=== PATIENT | male | born 1990 | race Caucasian/White ===

== ENCOUNTER 2019-06-23 17:46 | Emergency (ER) | payer OTHER, SELFPAY ==
[2019-06-23 17:49] VITALS: BP 126/70; PULSE 102; RESP 18; TEMP 36.2; O2SAT 100
--- NOTE | 2019-06-23 21:01 | ED.SKABFB ---
HPI - Skin/Abscess/Foreign Bdy General Chief complaint: Skin/Abscess/Foreign Body <FLO Fried Last Filed: 06/23/19 21:07> Stated complaint: skin issue <FLO Fried Last Filed: 06/23/19 21:07> Time Seen by Provider: 06/23/19 19:19 <FLO Fried Last Filed: 06/23/19 21:07> Source: patient <FLO Fried Last Filed: 06/23/19 21:07> Mode of arrival: ambulatory <FLO Fried Last Filed: 06/23/19 21:07> Limitations: no limitations <FLO Fried Last Filed: 06/23/19 21:07> History of Present Illness HPI narrative: This is a 28 year old male that presents to the ER for abscess to the right thigh x 2 weeks. Reports increasing pain and swelling to the area. He has tried OTC medications without relief. Denies fever or drainage <Corine Mayorga PA-C - Last Filed: 06/23/19 21:07> Related Data Home medications: Home Medications Medication Instructions Recorded Confirmed meloxicam 15 mg DAILY 06/23/19 <FLO Fried Last Filed: 06/23/19 21:07> Allergies/Adverse reactions: Allergies Allergy/AdvReac Type Severity Reaction Status Date / Time cephalexin Allergy Mild Hives Verified 06/23/19 17:53 Penicillins AdvReac Hives Verified 06/23/19 17:53 <FLO Fried Last Filed: 06/23/19 21:07> Review of Systems Review of Systems: Narrative: CONSTITUTIONAL: Denies fever SKIN: Reports abscess <FLO Fried Last Filed: 06/23/19 21:07> All systems reviewed & are unremarkable except as noted in HPI and below <FLO Fried Last Filed: 06/23/19 21:07> [facility] Past Medical History Medical History: Medical History (Updated 06/24/19 @ 00:00 by Background Daemon) No active medical problems <Corine Mayorga PA-C - Last Filed: 06/23/19 21:07> Social History Social History: Social History (Updated 06/23/19 @ 21:02 by Corine Mayorga PA-C) Substance use: never <Corine Mayorga PA-C - Last Filed: 06/23/19 21:07> Exam Narrative: Exam Narrative: GENERAL: Well-appearing, well-nourished, and in no acute distress. HEAD: Normocephalic, atraumatic. EYES: EOMI. EXTREMITIES: Normal range of motion. 2cm abscess to the right inner thigh with mild surrounding cellulitis SKIN: Warm, dry, no rash. NEURO: No focal deficits. Alert and oriented x3. PSYCH: Normal mood and affect <Corine Mayorga PA-C - Last Filed: 06/23/19 21:07> Course Vital Signs Vital signs: Vital Signs Temperature 97.2 F L 06/23/19 17:49 Pulse Rate 102 H 06/23/19 17:49 Respiratory Rate 18 06/23/19 17:49 Blood Pressure 126/70 06/23/19 17:49 Pulse Oximetry 100 06/23/19 17:49 Temperature 98.7 F 06/23/19 21:24 Pulse Rate 99 06/23/19 21:24 Respiratory Rate 16 06/23/19 21:24 Blood Pressure 125/81 06/23/19 21:24 Pulse Oximetry 98 06/23/19 21:24 <Corine Mayorga PA-C - Last Filed: 06/23/19 21:07> Vital Signs Temperature 97.2 F L 06/23/19 17:49 Pulse Rate 102 H 06/23/19 17:49 Respiratory Rate 18 06/23/19 17:49 Blood Pressure 126/70 06/23/19 17:49 Pulse Oximetry 100 06/23/19 17:49 Temperature 98.7 F 06/23/19 21:24 Pulse Rate 99 06/23/19 21:24 Respiratory Rate 16 06/23/19 21:24 Blood Pressure 125/81 06/23/19 21:24 Pulse Oximetry 98 06/23/19 21:24 <Natasha Ahuja MD - Last Filed: 06/24/19 07:11> Procedures Abscess I/D lower extremity: Date of Incision: 06/23/19 <FLO Fried Last Filed: 06/23/19 21:07> Time of Incision: 21:05 <FLO Fried Last Filed: 06/23/19 21:07> Side (if applicable): right <Corine Mayorga PA-C - Last Filed: 06/23/19 21:07> Local Anesthetic: lidocaine 1% and with epi <FLO Fried Last Filed: 06/23/19 21:07> Amount of anesthesia used (mL): 2 <FLO Fried Last Filed: 06/12
[2019-06-23 21:24] VITALS: BP 125/81; PULSE 99; RESP 16; TEMP 37.1; O2SAT 98
== END 2019-06-23 21:25 | disposition home or self-care (01) ==
PROVIDERS: Emergency Provider General Practice
DX: L02.415 Cutaneous abscess of right lower limb (principal)
CPT/HCPCS: 10060; 99283

== ENCOUNTER 2020-09-16 20:14 | Emergency (ER) | payer OTHER, SELFPAY ==
--- NOTE | ~2020-09-16 | CT_ITS ---
EXAMINATION: CT abdomen pelvis wo con DATE: 09/16/2020 23:02 INDICATION: Left flank pain. TECHNIQUE: Computed tomography (CT) of the abdomen and pelvis was performed without intravenous contr ast. Automated exposure control and iterative reconstruction technique were employed. The dose-length product was 1450.42 mGy-cm. COMPARISON: CT abdomen and pelvis 07/29/2009 FINDINGS: The visualized portions of the lung bases demonstrate mild atelectasis. No pleural effusion . The heart size is normal. No pericardial effusion. There is right-sided gynecomastia. The liver, ga llbladder, spleen, pancreas, adrenal glands, and right kidney are normal. There is mild left hydronep hrosis and hydroureter. There is a 3 mm stone in distal left ureter. There are no dilated loops of annia wel. The appendix is normal. There is mild thoracolumbar spondylosis. There are chronic bilateral L5 pars defects. There is 4 mm anterolisthesis of L5 on S1. IMPRESSION: 1. 3 mm stone in distal left ureter with mild left hydronephrosis and hydroureter. Reviewed, dictated and finalized at location A. IMPRESSION: 1. 3 mm stone in distal left ureter with mild left hydronephrosis and hydroure ter.
[2020-09-16 20:34] VITALS: BP 127/84; PULSE 67; RESP 20; TEMP 36.4; O2SAT 100
--- NOTE | 2020-09-16 21:16 | ED.BACK ---
HPI - Back Pain/Injury General Chief Complaint: Back Pain/Injury Stated Complaint: Back pain Time Seen by Provider: 09/16/20 21:03 History of Present Illness HPI Narrative: Left mid back pain since this afternoon. Severe. Radiates straight through him. Associated with nausea. He has chronic back pain, but states that he has never had anything like this before. No weakness, numbness, urinary symptoms. He took meloxicam and Robaxin without improvement. Related Data Home Medications Medication Instructions Recorded Confirmed meloxicam 15 mg DAILY 06/23/19 Allergies Allergy/AdvReac Type Severity Reaction Status Date / Time cephalexin Allergy Mild Hives Verified 09/16/20 21:10 Penicillins AdvReac Hives Verified 09/16/20 21:10 Review of Systems Review of Systems: All systems reviewed & are unremarkable except as noted in HPI and below Constitutional: Constitutional: Denies chills, Denies fever(s) and Denies weakness Cardiovascular: Cardiovascular: Denies chest pain Respiratory: Respiratory: Denies dyspnea Gastrointestinal: Gastrointestinal: Reports nausea Genitourinary: Genitourinary: Denies hematuria and Denies dysuria Musculoskeletal: Musculoskeletal: Reports as per HPI Neurologic: Denies numbness and Denies weakness [facility] Past Medical History Medical History No active medical problems Social History Social History Substance use: never Gender identity (if verbalized by the patient): Male Exam Const: General: healthy appearing, no acute distress and alert Orientation/consciousness: patient oriented x3 HENMT: Head: normal to inspection Neck: Neck: normal visual inspection Resp: Effort & Inspection: normal respiratory effort Auscultation: clear to auscultation bilaterally, no rales, no rhonchi and no wheezes Cardio: Jugular venous distension: no JVD Rate: regular rate Rhythm: regular rhythm Heart sounds: no murmurs GI: Inspection: non-distended GI Palp: Yes Soft to palpation and No Tenderness to palpation present (GI) : General: Yes CVA tenderness on the left Skin: General skin exam: normal color Neuro: General: patient oriented x3 and moves all extremities Speech: normal speech Extrem: General: normal to inspection and no edema Psych: Appearance: well kempt Affect: normal affect Course Vital Signs Vital signs: Vital Signs Temperature 36.4 C L 09/16/20 20:34 Pulse Rate 67 09/16/20 20:34 Respiratory Rate 20 09/16/20 20:34 Blood Pressure 127/84 09/16/20 20:34 Pulse Oximetry 100 09/16/20 20:34 Temperature 36.4 C L 09/16/20 20:34 Pulse Rate 72 09/17/20 01:40 Respiratory Rate 20 09/16/20 20:34 Blood Pressure 132/76 09/17/20 01:40 Pulse Oximetry 96 09/17/20 01:40 MDM - Back Pain/Injury Differential Diagnosis Differential diagnosis: Likely strain of lumbar region, renal colic and thoracic back pain Medical Records Attestation: I reviewed the patient's medical records. Lab Data Attestation: I reviewed the patient's lab results. Result diagrams: 09/16/20 21:42 09/16/20 21:42 Labs: Lab Results 09/16/20 09/16/20 09/17/20 Range/Units 21:42 21:42 01:33 WBC 13.7 H (4.5-10.0) K/mm3 RBC 4.50 L (4.6-6.20) M/mm3 Hgb 14.2 (14.0-18.0) g/dL Hct 42.8 (42.0-52.0) % MCV 95.1 (80-100) fl MCH 31.6 (26-34) pg MCHC 33.2 (32-36) g/dl RDW 11.6 (11.5-14.5) % Plt Count 208 (150-375) k/mm3 MPV 9.1 (7.4-10.4) fl Immature Gran % (Auto) 0.4 (0-0.5) % Neut % (Auto) 74.5 H (45.5-73.1) % Lymph % (Auto) 15.6 L (18.3-44.2) % [place] % (Auto) 7.1 (2.6-8.5) % Eos % (Auto) 2.0 (0-4.4) % Baso % (Auto) 0.4 (0.2-1.2) % Lymph # (Auto) 2.14 (0.9-3.2) K/mm3 [place] # (Auto) 1.0 H (0.1-0.6) K/mm3 Eos # (Auto) 0.3 (0-0.3) K/mm3 Baso # (A
[2020-09-16] MEDS: fentaNYL CITRATE INJ (*CRX) 100 MCG/2 ML VIAL 50 MCG IV PUSH (21:46)
[2020-09-16 21:48] LABS: Basophils Absolute Auto 0.1 K/mm3 (0.0-0.1); Basophils Percent Auto 0.4 % (0.2-1.2); Eosinophils Absolute Auto 0.3 K/mm3 (0-0.3); Hematocrit 42.8 % (42.0-52.0); Hemoglobin 14.2 g/dL (14.0-18.0); Immature Granulocyte Absolute 0.05 K/mm3 (0.00-0.031); Immature Granulocyte Percent A 0.4 % (0-0.5); Lymphocytes Absolute Auto 2.14 K/mm3 (0.9-3.2); Lymphocytes Percent Auto 15.6 % (18.3-44.2); Mean Corpuscular HGB Conc 33.2 g/dl (32-36); Mean Corpuscular Hemoglobin 31.6 pg (26-34); Mean Corpuscular Volume 95.1 fl (80-100); Mean Platelet Volume 9.1 fl (7.4-10.4); Monocytes Percent Auto 7.1 % (2.6-8.5); Neutrophils Absolute Auto 10.2 K/mm3 (1.3-6.7); Neutrophils Percent Auto 74.5 % (45.5-73.1); Platelet Count Result 208 k/mm3 (150-375); Red Cell Distribution Width 11.6 % (11.5-14.5); White Blood Count 13.7 K/mm3 (4.5-10.0)
[2020-09-16 21:58] LABS: Anion Gap 6 mmol/L (8-16); Blood Urea Nitrogen 13 mg/dL (9-20); Carbon Dioxide 27 mmol/L (22-30); Chloride 106 mmol/L (98-107); Estimated CRCL calculation 126 ml/min; Estimated Glomerular Filt Rate > 60; Glucose 101 mg/dL (65-110); Potassium 4.2 mmol/L (3.4-5.0); Sodium 139 mmol/L (137-145)
--- NOTE | 2020-09-16 22:21 | PC.NURSE ---
Dr. Estrella informed pain continues to be 11/21.
--- NOTE | 2020-09-16 23:15 | PC.NURSE ---
Report received from MARY Moreno. Assumed care of patient at this time.
[2020-09-16] MEDS: TAMSULOSIN HCL 0.4 MG CAPSULE PO (23:19)
[2020-09-16] MEDS: MORPHINE SULFATE (*CRX) 4 MG/ML INJ IV PUSH (23:19)
[2020-09-16 23:24] VITALS: PULSE 67; O2SAT 95
[2020-09-16] MEDS: SODIUM CHLORIDE 0.9% IV 1,000 ML 999 ML IV CONT (23:24)
[2020-09-16 23:29] VITALS: BP 139/87; PULSE 76; O2SAT 93
[2020-09-16 23:46] VITALS: BP 142/85; O2SAT 98
[2020-09-17] MEDS: SODIUM CHLORIDE 0.9% IV 1,000 ML 999 ML IV CONT (00:42)
[2020-09-17] MEDS: KETOROLAC 30 MG/ML VIAL (*BKC) IV PUSH (00:42)
[2020-09-17] MEDS: HYDROcodone/acetaminophen (*CRX) 5-325 MG TABLET 1 TAB PO (01:31)
[2020-09-17 01:40] VITALS: BP 132/76; PULSE 72; O2SAT 96
[2020-09-17 01:55] LABS: Add Urine Microscopic? YES; Appearance Urine Clear (Clear); Bacteria Urine Trace /hpf; Bilirubin Urine 1+ (Negative); Blood Urine 2+ (Negative); Color Urine Yellow (Yellow); Glucose Urine UA Negative (Negative); Ketones Urine Negative (Negative); Leukocyte Esterase Ur Negative LEU/UL (Negative); Mucus Urine Heavy /lpf; Nitrate Urine Negative (Negative); Protein Urine 2+ mg/dL (Negative); RBC Urine >75 /hpf (0-2); Squamous Epithelial Cell Urine Rare /hpf (Few); Urobilinogen Urine Negative mg/dL (<2.0); WBC Urine 0-3 /hpf
== END 2020-09-17 02:20 | disposition home or self-care (01) ==
PROVIDERS: Emergency Provider Emergency Medicine
DX: N13.2 Hydronephrosis with renal and ureteral calculous obstruction (principal)
CPT/HCPCS: 36415; 74176; 80048; 81001; 85025; 96361; 96374; 96375; 99284; A9270; J1885; J2270; J3010; J7030

== ENCOUNTER 2020-09-25 04:23 | Emergency (ER) | payer OTHER, SELFPAY ==
--- NOTE | ~2020-09-25 | CT_ITS ---
EXAMINATION: CT abdomen pelvis wo con DATE: 09/25/2020 05:35 INDICATION: Left flank pain TECHNIQUE: Computed tomography (CT) of the abdomen and pelvis was performed without intravenous contr ast. The dose-length product (DLP) was 798.20 mGy-cm. Automated exposure control and iterative recons truction technique were employed. COMPARISON: 09/16/2020 FINDINGS: Minimal dependent atelectasis is present in the lung bases. The heart size is normal. There is right-sided gynecomastia. The liver, spleen, pancreas, gallbladder, and adrenal glands are normal . The right kidney is unremarkable. There is a 4 mm stone at the left ureterovesicular junction which has migrated from the distal left ureter. There is mild left hydroureteronephrosis. No pathologicall y enlarged abdominal or pelvic lymph nodes are identified. There is no free intraperitoneal gas or ev idence of bowel obstruction. There are bilateral L5 pars defects with stable grade 1 anterolisthesis of L5 on S1. IMPRESSION: 1. 4 mm stone at the left ureterovesicular junction causing mild left hydroureteronephrosis. Reviewed, dictated and finalized at location A. IMPRESSION: 1. 4 mm stone at the left ureterovesicular junction causing mild left hydrouret eronephrosis.
[2020-09-25 04:25] VITALS: BP 137/85; PULSE 62; RESP 17; TEMP 36.2; O2SAT 99
--- NOTE | 2020-09-25 05:06 | PC.NURSE ---
Pt states he was seen last week for same pain and was told he had a left sided kidney stone. Reports being told he would pass the stone at home and sent home with a strainer. Pt states he has been straining his urine and he has not passed the stone to his knowledge. Per family at bedside, pt took 2mg Zofran and hydrocodone at 0330.
[2020-09-25 05:10] LABS: Add Urine Microscopic? YES; Appearance Urine Clear (Clear); Bilirubin Urine Negative (Negative); Blood Urine Negative (Negative); Color Urine Yellow (Yellow); Glucose Urine UA Negative (Negative); Ketones Urine Negative (Negative); Leukocyte Esterase Ur Negative LEU/UL (Negative); Nitrate Urine Negative (Negative); Protein Urine Negative (Negative); RBC Urine 0-2 /hpf (0-2); Specific Grav Ur 1.024 (1.001-1.035); Urobilinogen Urine Negative mg/dL (<2.0); WBC Urine 0-3 /hpf
[2020-09-25 05:44] LABS: Basophils Percent Auto 0.2 % (0.2-1.2); Eosinophils Percent Auto 0.2 % (0-4.4); Hematocrit 42.3 % (42.0-52.0); Hemoglobin 14.5 g/dL (14.0-18.0); Immature Granulocyte Absolute 0.07 K/mm3 (0.00-0.031); Immature Granulocyte Percent A 0.5 % (0-0.5); Lymphocytes Absolute Auto 0.61 K/mm3 (0.9-3.2); Lymphocytes Percent Auto 4.2 % (18.3-44.2); Mean Corpuscular HGB Conc 34.3 g/dl (32-36); Mean Corpuscular Hemoglobin 31.7 pg (26-34); Mean Corpuscular Volume 92.6 fl (80-100); Mean Platelet Volume 9.3 fl (7.4-10.4); Monocytes Absolute Auto 0.6 K/mm3 (0.1-0.6); Monocytes Percent Auto 3.9 % (2.6-8.5); Neutrophils Absolute Auto 13.2 K/mm3 (1.3-6.7); Platelet Count Result 228 k/mm3 (150-375); Red Blood Count 4.57 M/mm3 (4.6-6.20); Red Cell Distribution Width 11.1 % (11.5-14.5); White Blood Count 14.5 K/mm3 (4.5-10.0)
[2020-09-25 05:56] LABS: Anion Gap 8 mmol/L (8-16); Blood Urea Nitrogen 16 mg/dL (9-20); Carbon Dioxide 29 mmol/L (22-30); Chloride 95 mmol/L (98-107); Estimated CRCL calculation 93 ml/min; Estimated Glomerular Filt Rate 56; Glucose 114 mg/dL (65-110); Potassium 4.3 mmol/L (3.4-5.0); Sodium 132 mmol/L (137-145)
--- NOTE | 2020-09-25 06:09 | ED.GENADULT ---
HPI - General Adult General Chief complaint: Abdominal Pain Stated complaint: kidney stones Time Seen by Provider: 09/25/20 05:32 History of Present Illness HPI narrative: Patient is a 30-year-old gentleman who presents the emergency department with chief complaint of abdominal pain. The patient reports that he was seen in the emergency department several days ago and diagnosed with a kidney stone. Patient reports that he is continue to have discomfort but tonight the pain returned and has not been improving. The patient reports a little bit of nausea with this denies vomiting or diarrhea. The patient denies fever reports that he had followed up with his primary care physician and they were following things to make sure that he passed the stone. Patient reports he has been straining his urine patient denies fevers denies dysuria. The patient reports symptoms or not improved by anything nor they worsened by. Related Data Home Medications Medication Instructions Recorded Confirmed meloxicam 15 mg DAILY 06/23/19 Allergies Allergy/AdvReac Type Severity Reaction Status Date / Time cephalexin Allergy Mild Hives Verified 09/25/20 05:15 Penicillins AdvReac Hives Verified 09/25/20 05:15 Review of Systems Review of Systems: A 10 system review of systems was completed on the patient and is negative except for what is stated in the HPI. Nursing and ancillary documentation was reviewed. [facility] Past Medical History Medical History No active medical problems Social History Social History Substance use: never Gender identity (if verbalized by the patient): Male Exam Narrative: GENERAL: Well-appearing, well-nourished, and in no acute distress. HEAD: Normocephalic, atraumatic. EYES: PERRLA and EOMI. ENT: Nares clear, no rhinorrhea or epistaxis. Mucous membranes moist. NECK: Supple. CHEST: Clear to auscultation. No respiratory distress. HEART: Regular rate and rhythm. No murmur heard. Normal peripheral pulses. ABDOMEN: Soft, nontender, nondistended, normal active bowel sounds. EXTREMITIES: Normal range of motion. No edema. SKIN: Warm, dry, no rash. NEURO: No focal deficits. Alert and oriented x3. PSYCH: Normal mood and affect. Course Vital Signs Vital signs: Vital Signs Temperature 36.2 C L 09/25/20 04:25 Pulse Rate 62 09/25/20 04:25 Respiratory Rate 17 09/25/20 04:25 Blood Pressure 137/85 09/25/20 04:25 Pulse Oximetry 99 09/25/20 04:25 Temperature 36.2 C L 09/25/20 04:25 Pulse Rate 56 L 09/25/20 06:13 Respiratory Rate 16 09/25/20 06:13 Blood Pressure 127/85 09/25/20 06:13 Pulse Oximetry 98 09/25/20 06:13 Medical Decision Making Vital Signs Vital Signs: Vital Signs Temperature 36.2 C L 09/25/20 04:25 Pulse Rate 62 09/25/20 04:25 Respiratory Rate 17 09/25/20 04:25 Blood Pressure 137/85 09/25/20 04:25 Pulse Oximetry 99 09/25/20 04:25 Temperature 36.2 C L 09/25/20 04:25 Pulse Rate 56 L 09/25/20 06:13 Respiratory Rate 16 09/25/20 06:13 Blood Pressure 127/85 09/25/20 06:13 Pulse Oximetry 98 09/25/20 06:13 Lab Data Result diagrams: 09/25/20 04:33 09/25/20 04:33 Labs: Lab Results 09/25/20 09/25/20 09/25/20 Range/Units 04:33 04:33 04:53 WBC 14.5 H (4.5-10.0) K/mm3 RBC 4.57 L (4.6-6.20) M/mm3 Hgb 14.5 (14.0-18.0) g/dL Hct 42.3 (42.0-52.0) % MCV 92.6 (80-100) fl MCH 31.7 (26-34) pg MCHC 34.3 (32-36) g/dl RDW 11.1 L (11.5-14.5) % Plt Count 228 (150-375) k/mm3 MPV 9.3 (7.4-10.4) fl Immature Gran % (Auto) 0.5 (0-0.5) % Neut % (Auto) 91.0 H (45.5-73.1) % Lymph % (Auto) 4.2 L (18.3-44.2) % [place] % (Auto) 3.9 (2.6-8.5) % Eos % (Auto) 0.2 (0-4.4) % Baso % (Auto) 0.2 (0.2-1.2) % Lymph # (Auto) 0.61 L
[2020-09-25 06:13] VITALS: BP 127/85; PULSE 56; RESP 16; O2SAT 98
[2020-09-25] MEDS: SODIUM CHLORIDE 0.9% IV 1,000 ML 999 ML IV CONT (06:14)
[2020-09-25] MEDS: MORPHINE SULFATE (*CRX) 4 MG/ML INJ IV PUSH (06:14)
[2020-09-25] MEDS: ONDANSETRON INJ 4 MG/2 ML VIAL IV PUSH (06:15)
== END 2020-09-25 07:18 | disposition home or self-care (01) ==
PROVIDERS: Emergency Provider Emergency Medicine
DX: N13.2 Hydronephrosis with renal and ureteral calculous obstruction (principal)
CPT/HCPCS: 36415; 74176; 80048; 81001; 85025; 96361; 96374; 96375; 99284; J2270; J2405; J7030

== ENCOUNTER 2020-09-30 15:31 | Outpatient (CLI) | payer OTHER, SELFPAY ==
--- NOTE | ~2020-09-30 | XR_ITS ---
XR abdomen/kub 1V DATE: 09/30/2020 15:55 INDICATION: Left ureteral stone on previous CT examination TECHNIQUE: AP projection, 2 views COMPARISON: 09/25/[address] abdomen pelvis FINDINGS: The distal left ureteral calculus present on 09/25/2020 CT abdomen pelvis examination is not radiographically evident and likely has passed. There is a small left calcified pelvic phleboliths, also evident on the 09/25/2020 CT pelvis images. No other urinary tract calculus is evident on 09/25/2020 CT examination. There is a prominent amount of fecal material in the colon and rectum but no bowel obstruction is det ected. The psoas shadows are intact. No visceromegaly. Included skeletal structures are unremarkable. IMPRESSION: Probable interval resolution of distal left ureteral calculus since 09/25/2020 Reviewed, dictated and finalized at [facility]. Reviewed, dictated and finalized at location A.
== END 2020-09-30 15:32 | disposition home or self-care (01) ==
LOC: ANHIMG 15:34
PROVIDERS: Visit Provider Urology
DX: N20.1 Calculus of ureter (principal)
CPT/HCPCS: 74018

== ENCOUNTER → 2020-10-04 09:00 | Outpatient (CLI) | payer OTHER, SELFPAY ==
[2020-10-05 01:23] LABS: SARS-CoV-2 RNA PCR Negative
== END ==
PROVIDERS: Visit Provider Urology
DX: Z01.812 Encounter for preprocedural laboratory examination (principal); Z20.822 Contact with and (suspected) exposure to COVID-19
CPT/HCPCS: C9803; U0003; U0005

== ENCOUNTER 2020-10-05 02:17 | Day surgery (SDC) | payer OTHER, SELFPAY ==
[2020-10-04 10:24] VITALS: BMI 35.6
--- NOTE | 2020-10-04 13:45 | WPDANESEPPF ---
Anes - Initial Pre Proc Eval Procedure: Operation Date: 10/05/20 14:30 Proposed Procedures p Cystoscopy, Left Ureteroscopy, Left Stone Extraction, Left Possible Retrograde Pyelogram, Possible Left Stent Placement - Williams Ovalles MD s Possible Holmium Laser Procedure - Williams Ovalles MD Date/Time: 10/04/20 13:45 Surgeon: Williams Ovalles MD Pre Op Diagnosis: Left Ureteral Stone Patient Data Age: 30 Gender: M Height: 1.85 m Weight: 122.5 kg Allergies Allergy/AdvReac Type Severity Reaction Status Date / Time cephalexin Allergy Mild Hives Verified 10/04/20 10:10 Penicillins AdvReac Unknown MOM TOLD Verified 10/05/20 11:22 HIM ALLERGIC TO IT A CHILD Home Medications Medication Instructions Recorded Confirmed Type meloxicam 15 mg PO DAILY 06/23/19 10/05/20 History hydrocodone-acetaminophen 1 tablet PO Q6H PRN #10 tablet 09/16/20 10/05/20 Rx tamsulosin [Flomax] 0.4 mg PO DAILY #5 cap 09/16/20 10/05/20 Rx ondansetron 4 mg PO Q8H PRN #15 tablet 09/25/20 10/05/20 Rx Patient hx anesthesia problems: none Family hx anesthesia problems: none PMFSH Past Medical History Medical History (Updated 10/04/20 @ 13:46 by Joaquin Alonso MD) No active medical problems Obesity ALFONZO (obstructive sleep apnea) SVT (supraventricular tachycardia) Surgical History Surgical History (Updated 10/04/20 @ 13:46 by Joaquin Alonso MD) S/P ablation of atrial fibrillation Social History Social History Smoking packs per day: 1 Smoking cigarettes per day: 20.0 Years smoked: 10 Smoking pack-years: 10.00 Smoking status: Former smoker Tobacco type: cigarettes Smoking end date: 06/12/20 Substance use: current Substance use type: marijuana Last use: EVERY NIGHT TO HELP SLEEP Living arrangements: other Gender identity (if verbalized by the patient): Male Spiritual care concerns: No Anes - Eval Final PreProcedure Day of Procedure 10/04/20 13:45 Patient weight: obese Heart: regular rate and rhythm Lungs: clear to auscultation and normal air movement Airway: Mallampati scale class II Neurological: alert and oriented Last oral intake: >/= 8 hours ASA classification: III Emergent: no Anesthetic plan: proceed Anesthesia type and monitoring: general LMA Informed Consent: The patient's anesthetic plan and its attendant risks and benefits were discussed with the patient/family/POA. Questions were solicited and answers provided to the satisfaction of the patient/family/POA.
--- NOTE | ~2020-10-05 | XR_ITS ---
XR retrograde pyelo w/stent LT DATE: 10/05/2020 16:17 INDICATION: Left internal urinary stent placement TECHNIQUE: 21.3 seconds fluoroscopy time 319.86 radcm2 COMPARISON: None FINDINGS: Images reveal placement of a left internal urinary stent, proximal pigtail overlying the le ft renal pelvis, distal pigtail overlying the left lateral aspect of the urinary bladder. IMPRESSION: Left internal urinary stent placement Reviewed, dictated and finalized at [facility]. Reviewed, dictated and finalized at location A.
--- NOTE | 2020-10-05 07:54 | ECG_ITS ---
Measurements Intervals [place] Rate: 67 P: 43 AR: 186 QRS: 11 QRSD: 95 T: 19 QT: 393 QTc: 417 Interpretive Statements SINUS RHYTHM WITH SINUS ARRHYTHMIA ST ELEVATION IN DIFFUSE LEADS, PROBABLY EARLY REPOLARIZATION MINIMAL Q WAVES- HIGH LATERAL LEADS ABNORMAL ECG Electronically Signed On 10-05-2020 12:11:35 CDT by Manuel Hassan D.O.
[2020-10-05 11:30] VITALS: BP 109/67; PULSE 59; RESP 20; TEMP 36.4; O2SAT 98
[2020-10-05] MEDS: LACTATED RINGERS 1,000 ML 30 ML IV CONT (11:50)
--- NOTE | 2020-10-05 12:24 | SUR.PREOP ---
1215-PT AWARE SURGEON DELAYS SELF ADDITIONAL 1 HOUR. PT STATES HE WILL NOTIFY GIRLFRIEND WITH TIME DELAY.
--- NOTE | 2020-10-05 14:26 | WPDHPUPDATE1 ---
History and Physical Update Update Date/Time: 10/05/20 14:26 History and Physical has been reviewed, including an updated exam of the patient. There are NO changes in the patient's condition. Risks, benefits, and alternatives have been discussed and questions answered. Patient agrees to proceed with procedure. Proceed with cystoscopy, left retrograde pyelogram, left ureteroscopy with stone extraction, possible holmium laser, stent placement
[2020-10-05] MEDS: levoFLOXacin 500 MG/D5W 100 ML 500 MG/100 ML BAG 100 MG IVPB (15:40)
[2020-10-05] MEDS: LIDOCAINE HCL 2% GEL UROJET 10 ML PKG MUCOUS MEM (15:51)
--- NOTE | 2020-10-05 16:03 | W.PM.PROC2 ---
Procedure Note - Detailed Date of Procedure 10/05/20 Pre-op Diagnosis Left Ureteral Stone Post-op Diagnosis same Procedure Performed Cystoscopy, left retrograde pyelogram, left ureteroscopy with stone extraction, left stent placement Surgeon Williams Ovalles MD Anesthesia general Description of Procedure Patient is taken the operative suite and correctly identified. Once anesthesia was obtained was placed in dorsal lithotomy position and prepped and draped usual sterile fashion. Nineteen Mongolian scope was inserted the bladder there is no tumors. Left ureteral orifice was cannulated with a guidewire. We dilated with an 810/dilator. Rigid ureteral scope was inserted the stone was a able to be grasped with an escape basket and removed in its entirety. Pyelogram was then performed to confirm placement the stent. 4.8 Mongolian contour stent was then placed with the proximal end coiled in the renal pelvis and the distal in the bladder. Bladder was drained. 2% viscous lidocaine was inserted urethra patient is taken recovery stable condition. He will follow up in a week for stent removal. Drains Yes Packing No Pathology yes Complications No immediate complications Condition stable Disposition PACU
[2020-10-05 16:08] VITALS: BP 110/68; PULSE 60; RESP 15; TEMP 36.1; O2SAT 98
[2020-10-05 16:20] VITALS: BP 121/69; PULSE 64; RESP 20; O2SAT 98
[2020-10-05 16:30] VITALS: BP 111/74; PULSE 73; RESP 20; O2SAT 95
[2020-10-05 16:37] VITALS: BP 120/82; PULSE 55; RESP 16
[2020-10-05 17:05] VITALS: BP 98/62; PULSE 65; RESP 16
== END 2020-10-05 17:27 | disposition home or self-care (01) ==
PROVIDERS: Visit Provider Urology
PROC: (CPT 52352; principal; 2020-10-05 13:30)
DX: N20.1 Calculus of ureter (principal); I47.1 Supraventricular tachycardia; G47.33 Obstructive sleep apnea (adult) (pediatric); E66.9 Obesity, unspecified; Z68.35 Body mass index [BMI] 35.0-35.9, adult; Z87.891 Personal history of nicotine dependence; Z88.1 Allergy status to other antibiotic agents; Z88.0 Allergy status to penicillin
CPT/HCPCS: 52352; 52332; 74420; 82365; 88300; 93005; A9270; C1769; C2617; C9803; J1100; J1956; J2250; J2405; J2704; J3010; J7120; Q9966; U0003; U0005

== ENCOUNTER 2020-12-14 13:10 | Emergency (ER) | payer OTHER, SELFPAY ==
--- NOTE | 2020-12-14 13:52 | ED.EYEPROB ---
HPI - Eye Problem General Chief complaint: Eye Problems Stated complaint: R EYE INJURY Time Seen by Provider: 12/14/20 13:52 Source: patient Mode of arrival: ambulatory Limitations: no limitations History of Present Illness HPI Narrative: Patient is a 30-year-old male with a history of SVT status post ablation, presenting for evaluation of right eye pain. 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 Patient states that there was no charge or heat to the coil. Patient with mild pain at the time of the injury 2 days ago. Patient with increased eye redness, tearing on the right eye. He denies any vision changes. No discharge from the eye. Mild right eye pain. Patient does not wear contact lenses. He is up-to-date on his tetanus. No other injuries. No injury to the left eye. Related Data Home Medications Medication Instructions Recorded Confirmed meloxicam 15 mg PO DAILY 06/23/19 12/14/20 Allergies Allergy/AdvReac Type Severity Reaction Status Date / Time cephalexin Allergy Mild Hives Verified 12/14/20 14:03 Penicillins AdvReac Unknown MOM TOLD Verified 12/14/20 14:03 HIM ALLERGIC TO IT A CHILD Review of Systems Review of Systems: CONSTITUTIONAL: Denies fever HEENT: Reports right eye pain, watering, redness CARDIOVASCULAR: Denies chest pain RESPIRATORY: Denies cough or dyspnea. GASTROINTESTINAL: Denies abdominal pain SKIN: Denies rash MUSCULOSKELETAL: Denies back pain NEUROLOGIC: Denies headache PMFSH Past Medical History Medical History No active medical problems Obesity ALFONZO (obstructive sleep apnea) SVT (supraventricular tachycardia) Surgical History Surgical History S/P ablation of atrial fibrillation Social History Social History Smoking packs per day: 1 Smoking cigarettes per day: 20.0 Years smoked: 10 Smoking pack-years: 10.00 Smoking status: Former smoker Tobacco type: cigarettes Smoking end date: 06/12/20 Substance use: current Substance use type: marijuana Last use: EVERY NIGHT TO HELP SLEEP Gender identity (if verbalized by the patient): Male Spiritual care concerns: No Exam Narrative: GENERAL: Awake, alert, conversant HEAD: Normocephalic, atraumatic. EYES: 2+ PERRLA and EOMI. conjunctival injection right eye. Mild tearing of the right eye. Left eye is normal, conjunctive are normal. Visual acuity: OD 20/20, OS 20/20, OU 20/20. ENT: Nares clear, no rhinorrhea or epistaxis. Mucous membranes moist. NECK: Supple. CHEST: No respiratory distress, breathing even and non labored HEART: Regular rate, sinus rhythm ABDOMEN:Non distended, non tender EXTREMITIES: Normal range of motion. No edema. SKIN: Warm, dry, no rash. NEURO:No focal deficits. Alert and oriented x3 Course Vital Signs Vital signs: Vital Signs Temperature 36.8 C 12/14/20 13:59 Pulse Rate 65 12/14/20 13:59 Respiratory Rate 16 12/14/20 13:59 Blood Pressure 120/78 12/14/20 13:59 Pulse Oximetry 97 12/14/20 13:59 Temperature 36.8 C 12/14/20 13:59 Pulse Rate 65 12/14/20 13:59 Respiratory Rate 16 12/14/20 13:59 Blood Pressure 120/78 12/14/20 13:59 Pulse Oximetry 97 12/14/20 13:59 MDM - Eye Problem MDM Narrative Medical decision making narrative: Patient is a 30-year-old presenting for evaluation of right eye pain. Found to have a corneal abrasion to the right eye after fluorescein stain and tetracaine applied. Negative Ross sign. Intact visual acuity. Patient is up-to-date on his tetanus. He will be given erythromycin ointment to use at night, eyedrops to use during the day. I did explain the importance of ophthalmology follow-up or return if visual acuity were to change or have oth
[2020-12-14 13:59] VITALS: BP 120/78; PULSE 65; RESP 16; TEMP 36.8; O2SAT 97
== END 2020-12-14 15:15 | disposition home or self-care (01) ==
PROVIDERS: Emergency Provider Emergency Medicine
DX: S05.01XA Injury of conjunctiva and corneal abrasion without foreign body, right eye, initial encounter (principal); G47.30 Sleep apnea, unspecified; W22.8XXA Striking against or struck by other objects, initial encounter
CPT/HCPCS: 99283; A9270

== ENCOUNTER 2022-02-17 11:45 | Emergency (ER) | payer OTHER, SELFPAY ==
[2022-02-17 11:58] VITALS: BP 134/86; PULSE 77; RESP 16; TEMP 36; O2SAT 99
--- NOTE | 2022-02-17 12:14 | ED.EYEPROB ---
HPI - Eye Problem General Chief complaint: Eye Problems Stated complaint: right eye pain Time Seen by Provider: 02/17/22 12:15 Source: patient, RN notes reviewed and old records reviewed Mode of arrival: ambulatory Limitations: no limitations History of Present Illness HPI Narrative: 31-year-old male who presents to [facility] with 2 day history right eye pain with right upper eyelid. swelling. Patient denies any change in vision denies any drainage from right eye, some increased watering noted. Patient denies any trauma to his right eye or any foreign body.Patient denies any fevers, chills or sweats. chief complaint: other (right eyelid swelling) Onset (ago): day(s) (2) Severity scale (1-10): 3 Treatments Prior to Arrival: other (warm and cold compresses) Related Data Home Medications Medication Instructions Recorded Confirmed meloxicam 15 mg PO DAILY 06/23/19 02/17/22 Allergies Allergy/AdvReac Type Severity Reaction Status Date / Time cephalexin Allergy Mild Hives Verified 02/17/22 12:07 Penicillins AdvReac Unknown MOM TOLD Verified 02/17/22 12:07 HIM ALLERGIC TO IT A CHILD Review of Systems Review of Systems: CONSTITUTIONAL: Denies fever, chills, or sweats. EYES: Denies visual changes. Reports redness,, irritation, clear watery discharge with right upper eye lid swelling ENT: Denies rhinorrhea, congestion, sore throat, or otalgia. CARDIOVASCULAR: Denies chest pain, palpitations, or edema. RESPIRATORY: Denies cough or dyspnea. SKIN: Denies rash or itching. NEUROLOGIC: Denies headache All systems reviewed & are unremarkable except as noted in HPI and below PMFSH Past Medical History Medical History No active medical problems Obesity ALFONZO (obstructive sleep apnea) SVT (supraventricular tachycardia) Surgical History Surgical History S/P ablation of atrial fibrillation Social History Social History Smoking packs per day: 1 Smoking cigarettes per day: 20.0 Years smoked: 10 Smoking pack-years: 10.00 Smoking status: Former smoker Tobacco type: cigarettes Smoking end date: 06/12/20 Substance use: current Substance use type: marijuana Last use: EVERY NIGHT TO HELP SLEEP Gender identity (if verbalized by the patient): Male Spiritual care concerns: No Comments At time of signature, agree with nursing past medical, surgical, social and family history. There is no relevant family history pertinent to the presenting complaint Exam Narrative: GENERAL: Well-appearing, well-nourished, and in no acute distress. HEAD: Normocephalic, atraumatic. EYES: PERRLA and EOMI. right upper eyelid swelling noted with small white lesion noted to inner eyelid region, no periorbital swelling or cellulitis noted, no visual changes ENT: Nares clear, no rhinorrhea or epistaxis. Mucous membranes moist. NECK: Supple.no lymphadenopathy CHEST: Clear to auscultation. No respiratory distress. HEART: Regular rate and rhythm. No murmur heard. Normal peripheral pulses. SKIN: Warm, dry, no rash. NEURO: No focal deficits. Alert and oriented x3. Course Course Emergency Course: Patient is aware of diagnosis, understands and agrees to treatment plan. Anticipatory guidance given. Patient agrees to follow-up as directed and is aware of reasons to seek care at the emergency department. Portions of this record may have been created with voice recognition software Level of Care: Express Care Visit Vital Signs Vital signs: Vital Signs Temperature 36.0 C L 02/17/22 11:58 Pulse Rate 77 02/17/22 11:58 Respiratory Rate 16 02/17/22 11:58 Blood Pressure 134/86 02/17/22 11:58 Pulse Oximetry 99 02/17/22 11:58 Oxygen Delivery Room Air 02/17/22 11:58 Temperature 36.0 C L 02/17/22 11:58 Pulse Rate 77 02/17/22
== END 2022-02-17 12:30 | disposition home or self-care (01) ==
PROVIDERS: Emergency Provider Registered Nurse
DX: H00.021 Hordeolum internum right upper eyelid (principal); Z87.891 Personal history of nicotine dependence; F12.90 Cannabis use, unspecified, uncomplicated; E66.9 Obesity, unspecified; Z68.37 Body mass index [BMI] 37.0-37.9, adult
CPT/HCPCS: 99213; G0463

== ENCOUNTER 2024-03-14 23:54 | Emergency (ER) | payer OTHER, SELFPAY ==
--- OUTSIDE RECORDS SUMMARY | 2024-03-14 23:56 | XMS_ITS | Data Portability ---
Author Organization [facility] C[facility]/SMSNomi Mosher SI 11) Address [address] [facility] [address] [place] [address] Care Team Providers Care Trim Stencil Maker Name Role Phone Unavailable Primary Care Provider Unavailable Referring Provider Assessment Encounter Date Assessment Date Assessment LastModified by Organization Details LastModified Time 05/02/2016 05/02/2016 Patient has excessive daytime sleepiness over the last two years. He had a sleep study more than a year ago and he did not have sleep apnea. He has some history suggestive of cataplexy so he will undergo polysomnography with MSLT. I have given proper instructions to prepare for the testing. [email or web address] Not available 05/02/2016 15:11:39 Plan of Treatment Reminders Order Date Submit Date Provider Last Modified By Organization Details Last Modified Time Details Appointments None record ed. Lab None record ed. Referral None record ed. Procedures None record ed. Surgeries None record ed. Imaging None record ed. Medication Orders None record ed. Patient TargetsNo targets recorded. Patient Instructions Encounter Date Encounter Id Patient Instructions Last Modified By Organization Details Last Modified Time 05/02/2016 [id number] narcolepsy: care instructions [email or web address] Not available 05/08/2016 12:29:13 Reason for Referral None Reported. Procedures Surgical History Date Name Laterality Status Provider Name and Address Organization Details Recorded Time 05/11/2016 [place] Study completed Fadi Jones [place] - [facility] 05/12/2016 13:14:43 05/10/2016 Sleep Study completed Fadi Jones [place] [facility] 05/11/2016 10:19:26 Imaging Results None recorded. Procedure Notes None recorded. Medical Equipment None Reported. Allergies Allergen ID Allergen Name Allergen Category Reaction Reaction Severity Criticality Documentation Date Start Date Code Code System Note Provider Name and Address Organization Details Recorded Time [id number] 2824e Product containin g penicilli n and antibioti c (product) medicatio n Not available Not available Not available 05/02/2016 46070 05 SNOMED Not Available Not Available Not Available [id number] 2824e Keflex medicatio n Not available Not available Not available 05/02/2016 28797 7 RxNorm Not Available Not Available Not Available Medications Name Sig Start Date Stop Date Status Note LastModified by Organization Details LastModified Time meloxicam active Not Available Not Barbara ilable Not Available Vitals Date Recorded Body height Provider Name an d Address Organization Details Last Updated DateTime 05/02/2016 185.42 cm DARRICK MACKAY MD, KEVIN F.C.C.P. [address] [place] [address], [phone], [facility] 05/02/2016 14:37:35 Date Recorded Body weight Body mass index (BMI) Provider Name and Address Organization Details Last Updated DateTime 05/02/2016 973583.86 g 36.9 kg/m2 DARRICK MACKAY MD, Randy BROWN.C.C.P. [address] [place] [address], [phone], [facility] 05/02/2016 14:37:42 Date Recorded Oxygen saturation Oxygen saturation in Arterial blood by Pulse oximetry Provider Name and Address Organization Details Last Updated DateTime 05/02/2016 98 % 98 % DARRICK MACKAY MD, Randy BROWN.C.C.P. [address] [place] [address], [phone], [facility] 05/02/2016 15:08:07 Date Recorded Heart rate Provider Name an d Address Organization Details Last Updated DateTime 05/02/2016 67 /min DARRICK MACKAY MD, Randy BROWN.C.C.P. [address] [place] [address], [phone], [place] - [facility] 05/02/2016 15:08:12 Date Recorded Respiratory rate Provider Name a ak Address Organization Details Last Updated DateTime 05/02/2016 16 /min DARRICK MACKAY MD, Randy BROWN.C.C.P. [address], [phone], [place] - [facility] 05/02/2016 15:08:22 Date Recorded Systolic blood pressure Diastolic blood pressure Provider Name and Address Organization Details Last Updated DateTime 05/02/2016 110 mm[Hg] 70 mm[Hg] DARRICK MACKAY MD, Randy BROWN.C.C.P. [address], [phone], [place] [facility] 05/02/2016 15:08:02 Social History Question Answer Notes LastModified by Organizat ion Details LastModified Time Tobacco Smoking Status Current Every Day Smoker DARRICK MACKAY MD, KEVIN F.C.C.P. [address] [place] [address], [phone], [place] [facility] 05/02/2016 14:40:44 What Is Your Level Of Alcohol Consumption? None Information not available 05/02/2016 What Is Your Level Of Caffeine Consumption? Moderate Information not available 05/02/2016 Marital Status Informatio n not available 05/02/2016 How Many Children Do You Have? 0 Information not available 05/02/2016 How Much Tobacco Do You Smoke? 0.25 PPD Information not available 05/02/2016 Sex: Unknown Functional Status None recorded. Mental Status None recorded. Family History Nothing Reported. Medical History Condition Response Arthritis Y Past Encounters Encounter ID Performer Location Encounter Start Date Encounter Closed Date Diagnosis/Indication Diagnosis SNOMED-CT Code Diagnosis ICD10 Code Diagnosis Note [id number] DARRICK MACKAY MD, KEVIN F.C.C.P. [facility] (12) [id number] [place] [address] 05/02/2016 14:30:20 05/02/2016 16:36:22 Narcolepsy 70872214 G47.411 [id number] DARRICK MACKAY MD, KEVIN F.C.C.P. [facility] [address] [place] [address] 05/10/2016 21:42:42 05/11/2016 10:33:53 Obstructive sleep apnea of adult 9137370763 103 G47.33 [id number] DARRICK MACKAY MD, KEVIN F.C.C.P. [facility] [address] [facility] [address] [place] [address] 05/11/2016 18:20:23 05/12/2016 10:38:40 Narcolepsy without cataplexy 2865997154 9104 G47.419 Health Concerns Section Related Observation LastModified by Organization Detai ls LastModified Time None Recorded Concern Status LastModified by Organization Details LastModified Time None Recorded Advance Directives Directive None Recorded Payers Encounter Date Sequence Insurance Name Policy Number Policy Gaona Covered Member ID Gaona Member ID Guarantor Name 05/02/[address] [facility]-[id number] [place] Montero [id number] [place] Montero 05/10/2016 DEPARTMENT OF [facility] [id number] Hinduism Montero [id number] Bay Montero 05/11/[address] [facility]-VAP Hinduism Montero [id number] Bay Montero Notes Date Note Type Note Provider Name and Address Organization Details Recorded Time 05/02/2016 text/html Sleep History-Re ported bypatient.The patient presents with chief complaint ofsleepiness; snoring It is stated thathe goes to bed around 12-1am PM; usually falls asleep within 5 min The patient arises in the morning feelingrefreshed.; at approximately 7 AM Awakening at nightapproximately 1 per/night The patientdoes snore; Snoring is reported to be heavy Witnessed apneas, gasping for breathhave not been noted The patient iscurrently working as; During the day he is frequently sleepy or fatigued The patient reports thathe sometimes nods off off at work and at home During quiet activities (e.g. reading, watching TV)the patient nods off; There is a history of napping; 2 naps per week are reported During drivingand has nodded off while driving; There have not been fall asleep accidents The [place] SleepinessScore is 19 (Normal is less than 10) The patientdoes not awaken with morning headaches There isno awakening with chest pain Therehave been problems with concentration memory difficulties Symptoms ofleg restlessness are not experienced The patient reportshistory of sleep paralysis hypnagogic hallucinations cataplexy Restless sleephas not been noted; and kicking at night has not been noted The patientdoes not consume alcohol The patientreports that he is a current cigarette smoker Weightgain is reported Other medical problems includeheart disease The patient reports that thereis not a family history of a sleep disorder. DARRICK MACKAY MD, DABRAYMUNDO, F.C.C.P. [address] [address], [place], [address], [facility] 05/02/2016 15:11:59
--- OUTSIDE RECORDS SUMMARY | 2024-03-14 23:56 | XMS_ITS | Encounter Summary ---
Author Organization [facility] Address [address] [place] [address]. [place], [place] [address] [place] [address] Care Team Providers Care Allergist Immunologist Name Role Phone None, Provider MD Primary Care Provider Rohini ohara Non-Staff, Provider Primary Care Provider Radha lima Encounter Details Date Type Department Care Team (Late st Contact Info) Description 09/14/2021 Abstract [facility], [address] [address] Tereza Emerson MA Social History Tobacco Use Types Packs/Day Years Used Date Smoking Tobacco: Former Cigarettes Q uit: 08/2020 Smokeless Tobacco: Never Alcohol Use Standard Drinks/Week Comments Yes 0 (1 standard drink = 0.6 oz pur e alcohol) Sex and Gender Information Value Date Recorded Sex Assigned at Not on file Legal Sex Male 2:37 PM CDT Gender Identity Not on file Sexual Orientation Not on file COVID-19 Exposure Response Date Recorded In the last 10 days, have yo u been in contact with someone who was confirmed or suspected to have Coronavirus/COVID-19? No / Unsure 09/13/2021 7:54 AM CDT documented as of this encounter Plan of Treatment Not on file documented as of this encounter Procedures Procedure Name Priority Date/Time Associated Diagnosis Comments CBC (OUTSIDE LAB) Routine 09/08/2021 COMPREHENSIVE METABOLIC PANEL Routine 09/08/2021 LIPID PANEL Routine 09/08/2021 HEMOGLOBIN, GLYCOSYLATED Routine 09/08/2021 VITAMIN D, 25 OH Routine 09/08/2021 documented in this encounter Results * HEMOGLOBIN, GLYCOSYLATED (09/08/2021) Pathologist [facility] HGB A1C 5.0 % 09/08/2021 us Doc [facility] Abstract LABORATORY Final Result * CBC (OUTSIDE LAB) (09/08/2021) Pathologist [facility] WBC 6.36 HGB 13.8 HCT 41.0 PLT 233 09/08/2021 us Doc [facility] Abstract LAB-OUTSIDE/ABSTRACTED Final Result * VITAMIN D, 25 OH (09/08/2021) Pathologist [facility] VITAMIN D 25 HYDROXY S/P/B 21.5 09/08/2021 us Doc [facility] Abstract LABORATORY Final Result * LIPID PANEL (09/08/2021) Pathologist [facility] CHOLESTEROL 124 HDL 50 TRIGLYCERIDES 39 LDL (CALCULATED) 66 DIRECT LDL 69 09/08/2021 us Doc [facility] Abstract LABORATORY Final Result * (ABNORMAL) COMPREHENSIVE METABOLIC PANEL (09/08/2021) Pathologist [facility] SODIUM S/P/B 143 POTASSIUM S/P/B 4.1 CO2 27 CHLORIDE S/P/B 106 GLUCOSE 94 mg/dL CALCIUM S/P/B 8.7 BUN 10 CREATININE S/P/B 0.85 0.7 - 1.3 EGFR NON-AFR. AMER. 120.63(A) <=90 ALKALINE PHOSPHATASE S/P/B 92 ALT 23 AST 18 BILIRUBIN TOTAL S/P/B 0.3 ALBUMIN S/P/B 4.0 3.5 - 5.0 TOTAL PROTEIN S/P/B 6.5 09/08/2021 us Doc [facility] LABORAT[facility] Final Result documented in this encounter Visit Diagnoses Not on filedocumented in this encounter Care Teams Allergist Immunologist Relationship Specialty Start Date End Date None, Provider, PCP - General 09/07/21 09/20/21 Non-Staff, Provider PCP - General 09/21/21 documented as of this encounter
--- OUTSIDE RECORDS SUMMARY | 2024-03-14 23:56 | XMS_ITS | Clinical Summary ---
Author Organization [facility] [place] Address [address] [place] [phone] Care Team Providers Care Debarker Operator Name Role Phone Unavailable Primary Care Provider Unavailabl e Active Problems No known active problems Social History Tobacco Use Types Packs/Day Years Used Date Smoking Tobacco: Never Assessed Sex and Gender Information Value Date Recorded Sex Assigned at Not on file Legal Sex Male 8:29 AM CDT Gender Identity Not on file Sexual Orientation Not on file Last Filed Vital Signs Vital Sign Reading Time Taken Comments Blood Pressure 122/82 06/19/2022 7:36 AM CDT Pulse - - Temperature - - Respiratory Rate - - Oxygen Saturation - - Inhaled Oxygen Concentration - - Weight 126.1 kg (278 lb) 08/18/2021 10:52 AM CDT Height 185.4 cm (6' 1 ) 08/18/2021 10:52 AM CDT Body Mass Index 36.68 08/18/2021 10:52 AM CDT Plan of Treatment Health Maintenance Due Date Last Done Comments HPV VACCINES (2 - Male 3-dose series) 08/25/2016 07/28/2016 INFLUENZA VACCINE (#1) 2023 0, 04/02/2019, 12/01/2013, Additional history exists DTAP/TDAP/TD VACCINES (4 - Td or Tdap) 07/28/2026 07/28/2016, 04/19/2012, 07/22/2010 HEPATITIS B VACCINES Completed 08/03/2011, 01/18/2011, 07/22/2010 PNEUMOCOCCAL VACCINE 0-64 YEARS Aged Out 09/24/2017 No longer eligible based on patient's age to complete this topic Insurance * Guarantor: [employer] Account Type Relation to Patient Date of Phone Billing Address Corporate Employer ATTN: ASHLEY DE LOS SANTOS [address] [address] [employer]LEGIANCE OPEN ACCESS
--- OUTSIDE RECORDS SUMMARY | 2024-03-14 23:56 | XMS_ITS | Clinical Summary ---
Author Organization [facility] Address [address] [place] [address]. [place], [place] [address] [place] [address] Care Team Providers Care Electronic Calibration Technician Name Role Phone Non-Staff, Provider Primary Care Provider Unavaprudence lable Allergies Active Allergy Reactions Criticality Noted Date Comments Cephalexin Hives 09/11/2006 Penicillin G Unknown 1992 Medications meloxicam (MOBIC) 15 MG tablet Take 1 tablet by mouth daily. 08/12/2016 Active sertraline (ZOLOFT) 100 MG tablet Take 1.5 tablets (150 mg total) by mouth daily. 02/09/2022 Active QUEtiapine (SEROQUEL) 100 MG tablet Take 0.5 tablets (50 mg total) by mouth nightly at bedtime. 02/09/2022 Active prazosin (MINIPRESS) 2 MG capsule Take 1 capsule (2 mg total) by mouth nightly at bedtime. 02/09/2022 Active clonazePAM (KLONOPIN) 1 MG tablet Take 1 tablet (1 mg total) by mouth daily as needed. 02/09/2022 Active Active Problems Problem Noted Date Diagnosed Date Dizziness 09/13/2021 SVT (supraventricular tachycardia) ([facility]) 08/13/2011 Family History Medical History Relation Comments No Known Problems Father No Known Problems Mother Relation Status Comments Father Alive Mother Alive Social History Tobacco Use Types Packs/Day Years [...] Sign Reading Time Taken Comments Blood Pressure 124/78 09/19/2022 12:04 PM CDT Pulse 72 09/19/2022 12:04 PM CDT Temperature - - Respiratory Rate - - Oxygen Saturation 98% 09/19/2022 12:04 PM CDT Inhaled Oxygen Concentration - - Weight 121.6 kg (268 lb) 09/19/2022 12:04 PM CDT Height 185.4 cm (6' 1 ) 09/19/2022 12:04 PM CDT Body Mass Index 35.36 09/19/2022 12:04 PM CDT Plan of Treatment Health Maintenance Due Date Last Done Comments Annual Physical 08/15/1995 Hepatitis C 2010 DTaP, Tdap and Td Vaccines ( 1 - Tdap) 08/15/2011 Hepatitis B Vaccines (1 of 3 - 19+ 3-dose series) 08/15/2011 COVID-19 Vaccine (2023-2 5 season) 2023 Influenza Adult (#1) 2023 HPV Vaccines Aged Out No longer eligi ble based on patient's age to complete this topic Meningococcal B Vaccine Aged Out No l onger eligible based on patient's age to complete this topic Meningococcal Vaccine Aged Out No lesley trent eligible based on patient's age to complete this topic Pneumococcal Vaccine: Pediat rics (0 to 5 Years) and At-Risk Patients (6 to 64 Years) Aged Out No longer eligible b ased on patient's age to complete this topic RSV Immunizations Under 20 Months Aged Out No longer eligible based on patient's age to complete this topic Insurance [facility] Care Teams Electronic Calibration Technician Relationship Specialty Start Date End Date Non-Staff, Provider PCP - General 09/21/21
[2024-03-15 00:06] VITALS: BP 139/86; PULSE 68; RESP 14; TEMP 36.1; O2SAT 100
[2024-03-15 00:19] LABS: Basophils Percent Auto 0.6 % (0.2-1.2); Eosinophils Absolute Auto 0.2 K/mm3 (0-0.3); Eosinophils Percent Auto 3.1 % (0-4.4); Hematocrit 43.2 % (42.0-52.0); Hemoglobin 14.3 g/dL (14.0-18.0); Immature Granulocyte Absolute 0.01 K/mm3 (0.00-0.031); Immature Granulocyte Percent A 0.1 % (0-0.5); Lymphocytes Absolute Auto 2.47 K/mm3 (0.9-3.2); Lymphocytes Percent Auto 35.2 % (18.3-44.2); Mean Corpuscular HGB Conc 33.1 g/dl (32-36); Mean Corpuscular Hemoglobin 31.9 pg (26-34); Mean Corpuscular Volume 96.4 fl (80-100); Mean Platelet Volume 8.9 fl (7.4-10.4); Monocytes Absolute Auto 0.7 K/mm3 (0.1-0.6); Monocytes Percent Auto 9.7 % (2.6-8.5); Neutrophils Absolute Auto 3.6 K/mm3 (1.3-6.7); Neutrophils Percent Auto 51.3 % (45.5-73.1); Platelet Count Result 211 k/mm3 (150-375); Red Blood Count 4.48 M/mm3 (4.6-6.20); Red Cell Distribution Width 11.8 % (11.5-14.5)
[2024-03-15 00:31] LABS: Alanine Aminotransferase 32 U/L (6-50); Albumin Level 4.4 g/dL (3.5-5.1); Alkaline Phosphatase 96 U/L (38-126); Anion Gap 9 mmol/L (4-12); Aspartate Amino Transferase 30 U/L (17-59); Bilirubin,Total 0.4 mg/dL (0.2-1.3); Blood Urea Nitrogen 17 mg/dL (9-20); Calcium 9.4 mg/dL (8.4-10.2); Carbon Dioxide 29 mmol/L (22-30); Chloride 102 mmol/L (98-107); Estimated CRCL calculation 151 ml/min; Estimated Glomerular Filt Rate > 60; Glucose 96 mg/dL (65-110); Lipase 103 U/L (23-300); Potassium 4.1 mmol/L (3.4-5.0); Sodium 140 mmol/L (137-145)
--- NOTE | 2024-03-15 03:04 | ED.GENADULT ---
HPI - General Adult General Chief complaint: Abdominal Pain Stated complaint: abd pain Time Seen by Provider: 03/15/24 02:55 History of Present Illness HPI narrative: Patient is a 33-year-old male who presents the ER with pain around the umbilicus. Began today. Sharp. Worse with certain movements. No difficulty with moving bowels or passing gas. Had an umbilical hernia repair in the past is concerned something may have happened. No known trauma. Related Data Home Medications ?Medication ?Instructions ?Recorded ?Confirmed ?Last Taken ?Type meloxicam 15 mg PO DAILY 06/23/19 02/17/22 10/04/20 History Allergies Allergy/AdvReac Type Severity Reaction Status Date / Time cephalexin Allergy Mild Hives Verified 07/16/23 11:38 Penicillins AdvReac Unknown MOM TOLD Verified 07/16/23 11:38 HIM ALLERGIC TO IT A CHILD Review of Systems Review of Systems: All systems reviewed & are unremarkable except as noted in HPI and below Constitutional: Constitutional: Reports no additional constitutional complaints Cardiovascular: Cardiovascular: Reports no additional cardiovascular complaints Respiratory: Respiratory: Reports no additional respiratory complaints Gastrointestinal: Gastrointestinal: Reports no additional gastrointestinal complaints Musculoskeletal: Musculoskeletal: Reports no additional musculoskeletal complaints [facility] Past Medical History Medical History No active medical problems Obesity ALFONZO (obstructive sleep apnea) SVT (supraventricular tachycardia) Surgical History Surgical History S/P ablation of atrial fibrillation Social History Social History (System 07/16/23 @ 11:38 by Orlando Cristobal) Smoking packs per day: 1 Smoking cigarettes per day: 20.0 Years smoked: 10 Smoking pack-years: 10.00 Smoking status: Former smoker Tobacco type: cigarettes Smoking end date: 06/12/20 Substance use: current Substance use type: marijuana Last use: EVERY NIGHT TO HELP SLEEP Living arrangements: other Gender identity (if verbalized by the patient): Male Spiritual care concerns: No Exam Narrative: GENERAL: Well-appearing, well-nourished, and in no acute distress. HEAD: Normocephalic, atraumatic. ENT: Mucous membranes moist. CHEST: Clear to auscultation. No respiratory distress. HEART: Regular rate and rhythm. Normal peripheral pulses. ABDOMEN: Soft, nontender, nondistended. mild tenderness the umbilicus but no large defect palpated. EXTREMITIES: Normal range of motion. No edema. SKIN: Warm, dry, no rash. NEURO: Alert and oriented x3. PSYCH: Normal mood and affect. Course Course Emergency Course: Discussed small defect 2nd causes irritation of fat. No large hernia containing bowel. Recommend follow-up with previous surgeon if symptoms continue. Vital Signs Vital signs: Vital Signs Temperature 97 F L 03/15/24 00:06 Pulse Rate 68 03/15/24 00:06 Respiratory Rate 14 03/15/24 00:06 Blood Pressure 139/86 03/15/24 00:06 Pulse Oximetry 100 03/15/24 00:06 Oxygen Delivery Room Air 03/15/24 00:06 Temperature 97 F L 03/15/24 00:06 Pulse Rate 68 03/15/24 00:06 Respiratory Rate 14 03/15/24 00:06 Blood Pressure 139/86 03/15/24 00:06 Pulse Oximetry 100 03/15/24 00:06 Oxygen Delivery Room Air 03/15/24 00:06 Medical Decision Making Vital Signs Vital Signs: Vital Signs Temperature 97 F L 03/15/24 00:06 Pulse Rate 68 03/15/24 00:06 Respiratory Rate 14 03/15/24 00:06 Blood Pressure 139/86 03/15/24 00:06 Pulse Oximetry 100 03/15/24 00:06 Oxygen Delivery Room Air 03/15/24 00:06 Temperature 97 F L 03/15/24 00:06 Pulse Rate 68 03/15/24 00:06 Respiratory Rate 14 03/15/24 00:06 Blood Pressure 139/86 03/15/24 00:06 Pulse Oximetry 100 03/15/24 00:06 Oxygen Delivery Room Air 03/15/24 00:06 Lab Data 03/15/24 00:12 03/15/24 00:12 Labs: Lab Results 03/15/24 Range/Units 00:12 WBC 7.0 (4.5-10.0) K/mm3 RBC 4.48 L (4.6-6.20) M/mm3 Hgb 14.3 (14.0-18.0) g/dL Hct 43.2 (42.0-52.0) % MCV 96.4 (80-100) fl MCH 31.9 (26-34) pg MCHC 33.1 (32-36) g/dl RDW 11.8 (11.5-14.5) % Plt Count 211 (150-375) k/mm3 MPV 8.9 (7.4-10.4) fl Immature Gran % (Auto) 0.1 (0-0.5) % Neut % (Auto) 51.3 (45.5-73.1) % Lymph % (Auto) 35.2 (18.3-44.2) % [place] % (Auto) 9.7 H (2.6-8.5) % Eos % (Auto) 3.1 (0-4.4) % Baso % (Auto) 0.6 (0.2-1.2) % Lymph # (Auto) 2.47 (0.9-3.2) K/mm3 [place] # (Auto) 0.7 H (0.1-0.6) K/mm3 Eos # (Auto) 0.2 (0-0.3) K/mm3 Baso # (Auto) 0.0 (0.0-0.1) K/mm3 Abs Immat Gran (auto) 0.01 (0.00-0.031) K/mm3 Absolute Neuts (auto) 3.6 (1.3-6.7) K/mm3 Absolute Nucleated RBC 0.000 (0.0-0.012) K/mm3 Nucleated RBC % 0.0 (0.0-0.2) % Sodium 140 (137-145) mmol/L Potassium 4.1 (3.4-5.0) mmol/L Chloride 102 (98-107) mmol/L Carbon Dioxide 29 (22-30) mmol/L Anion Gap 9 (4-12) mmol/L BUN 17 (9-20) mg/dL Creatinine 0.84 (0.7-1.3) mg/dL Estim Creat Clear Calc 151 ml/min Estimated GFR > 60 (59 - ) Glucose 96 (65-110) mg/dL Calcium 9.4 (8.4-10.2) mg/dL Total Bilirubin 0.4 (0.2-1.3) mg/dL AST 30 (17-59) U/L ALT 32 (6-50) U/L Alkaline Phosphatase 96 (38-126) U/L Total Protein 7.0 (6.3-8.2) g/dL Albumin 4.4 (3.5-5.1) g/dL Lipase 103 (23-300) U/L Discharge Plan Discharge Clinical Impression: Umbilical pain Patient Disposition: Home, Self-Care Condition: Stable Instructions: Umbilical Hernia (ED) Additional Instructions: Return ER if you have significantly increased pain around her umbilicus with a prominent bulge that you cannot push back into her body. Additionally return if he cannot breathe, cannot swallow, or you have additional concerns. Patient Language: Cameroonian Prescriptions: No Action erythromycin 5 mg/gram (0.5 %) ointment 0.5 inch RIGHT EYE QID 7 Days Qty: 3.5 1RF meloxicam 15 mg PO DAILY Follow-up/Referrals: [facility] [Primary Care Provider] - 1 Week
--- OUTSIDE RECORDS SUMMARY | 2024-03-15 03:15 | XMS_ITS | Encounter Summary ---
Author Organization [facility] Address [address] [place] [address]. [place], [place] [id number] [place] [id number] Care Team Providers Care Wire Stockkeeper Name Role Phone None, Provider MD Primary Care Provider Rohini ohara Non-Staff, Provider Primary Care Provider Radha lima Encounter Details Date Type Department Care Team (Late st Contact Info) Description 09/14/2021 Abstract [facility], [address] [id number] Tereza Emerson MA Social History Tobacco Use [...] encounter Results * HEMOGLOBIN, GLYCOSYLATED (09/08/2021) Pathologist [facility] HGB A1C 5.0 % 09/08/2021 us Doc [facility] LABORATORY Final Result * CBC (OUTSIDE LAB) (09/08/2021) Pathologist [facility] WBC 6.36 HGB 13.8 HCT 41.0 PLT 233 09/08/2021 us Doc [facility] Abstract LAB-OUTSIDE/ABSTRACTED Final Result * VITAMIN D, 25 OH (09/08/2021) Pathologist [facility] VITAMIN D 25 HYDROXY S/P/B 21.5 09/08/2021 us Doc [facility] LABORATORY Final Result * LIPID PANEL (09/08/2021) Pathologist [facility] CHOLESTEROL 124 HDL 50 TRIGLYCERIDES 39 LDL (CALCULATED) 66 DIRECT LDL 69 09/08/2021 us Doc [facility]OR[facility] Final Result * (ABNORMAL) COMPREHENSIVE METABOLIC PANEL (09/08/2021) Pathologist [facility] SODIUM S/P/B 143 POTASSIUM S/P/B 4.1 CO2 [...] on filedocumented in this encounter Care Teams Wire Stockkeeper Relationship Specialty Start Date End Date None, Provider, PCP - General 09/07/21 09/20/21 Non-Staff, Provider PCP - General 09/21/21 documented as of this encounter
--- OUTSIDE RECORDS SUMMARY | 2024-03-15 03:15 | XMS_ITS | Clinical Summary ---
Author Organization [facility] Address [address] [place] [address]. [place], [place] [id number] [place] [id number] Care Team Providers Care Sales Agent [employer] Name Role Phone Non-Staff, Provider Primary Care [...] Diagnosed Date Dizziness 09/13/2021 SVT (supraventricular tachycardia) ([facility]) 08/13/2011 Family History Medical History Relation [...] patient's age to complete this topic Insurance [facility] Care Teams Sales Agent Fire Insurance Relationship Specialty Start Date End Date Non-Staff, Provider PCP - General 09/21/21
--- OUTSIDE RECORDS SUMMARY | 2024-03-15 03:15 | XMS_ITS | Clinical Summary ---
Author Organization [facility] Isabella Oliver [employer] Address [address] [place] [id number] Care Team Providers Care Supervisor [employer] Name Role Phone Unavailable Primary Care Provider [...] to complete this topic Insurance * Guarantor: [employer] Account Type Relation to Patient Date of Phone Billing Address Corporate Employer ATTN: ASHLEY DE LOS SANTOS [address] [address] [place] OPEN [employer]
== END 2024-03-15 03:31 | disposition home or self-care (01) ==
PROVIDERS: Emergency Provider Emergency Medicine
DX: R10.33 Periumbilical pain (principal); E66.9 Obesity, unspecified; Z68.35 Body mass index [BMI] 35.0-35.9, adult; G47.33 Obstructive sleep apnea (adult) (pediatric); Z87.891 Personal history of nicotine dependence
CPT/HCPCS: 36415; 80053; 83690; 85025; 99283